=== PATIENT | female | born 1970 | race Two or more races ===

== ENCOUNTER 2016-10-05 20:54 | Emergency (ER) | payer OTHER ==
[~2016-10-05] VITALS: Ht 152.4 cm; Wt 90.7 kg
[2016-10-05 20:56] VITALS: BP 143/88
== END 2016-10-05 21:15 | disposition home or self-care (01) ==
LOC: ER 21:00
DX: S29.012A Strain of muscle and tendon of back wall of thorax, initial encounter (principal); S39.012A Strain of muscle, fascia and tendon of lower back, initial encounter; V49.40XA Driver injured in collision with unspecified motor vehicles in traffic accident, initial encounter; Y93.89 Activity, other specified; Y92.413 State road as the place of occurrence of the external cause; Y99.8 Other external cause status
CPT/HCPCS: 99283; A4606; Z7610